=== PATIENT | female | born 1995 | race Two or more races ===

== ENCOUNTER 2023-02-26 21:10 | Emergency (ER) | payer OTHER ==
[~2023-02-26] VITALS: Ht 149.9 cm; Wt 61.2 kg
[2023-02-27 01:45] LABS: HEMOGLOBIN 14.3 g/dL (12.0-15.00); MEAN CELL VOLUME 86.3 fL (80.00-100.00); MEAN CORPUSCULAR HEMOGLOBIN 30.1 pg (27.00-32.0); MEAN CORPUSCULAR HGB CONC 34.9 g/dl (32.0-36.0); PLATELET COUNT 137 K/uL (150-450); RED BLOOD COUNT 4.76 M/uL (4.00-6.00); RED CELL DISTRIBUTION WIDTH 14.1 % (11.5-14.5)
[2023-02-27] MEDS ORDERED: PEPCID40 MG PO (03:47)
[2023-02-27] MEDS ORDERED: ONDANSETRON ODT4 MG PO (03:47)
== END 2023-02-27 03:53 ==
LOC: ER 21:10
PROVIDERS: General Practice
DX: R53.81 Other malaise (principal); B34.9 Viral infection, unspecified; Z20.822 Contact with and (suspected) exposure to COVID-19

== ENCOUNTER 2023-03-03 14:29 | Emergency (ER) | payer OTHER ==
[~2023-03-03] VITALS: Ht 149.9 cm; Wt 61.2 kg
[~2023-03-03 14:29] MED LIST: ONDANSETRON ODT4 MG PO; PEPCID40 MG PO
== END 2023-03-03 17:29 | disposition home or self-care (01) ==
LOC: ER 14:29
DX: K59.01 Slow transit constipation (principal)

== ENCOUNTER 2024-01-01 20:02 | Emergency (ER) | payer OTHER ==
[~2024-01-01] VITALS: Ht 149.9 cm; Wt 61.2 kg
[2024-01-01 20:15] VITALS: BP 101/62; O2SAT 99
[2024-01-01] MEDS ORDERED: ABILIFY2 MG (20:15)
[2024-01-01] MEDS ORDERED: [UNRECOGNIZED DRUG - OTHER] (20:15)
[2024-01-01] MEDS ORDERED: ZOLOFT20 MG/1 ML (20:15)
[2024-01-01] MEDS ORDERED: CLONAZEPAM0.125 MG (20:15)
[2024-01-01 21:19] LABS: HEMATOCRIT 38.9 % (36.0-45.00); HEMOGLOBIN 13.4 g/dL (12.0-15.00); MEAN CELL VOLUME 89.8 fL (80.00-100.00); MEAN CORPUSCULAR HEMOGLOBIN 30.9 pg (27.00-32.0); MEAN CORPUSCULAR HGB CONC 34.4 g/dl (32.0-36.0); PLATELET COUNT 299 K/uL (150-450); RED BLOOD COUNT 4.33 M/uL (4.00-6.00); RED CELL DISTRIBUTION WIDTH 14.2 % (11.5-14.5)
[2024-01-01 21:37] LABS: PH,URINE 6.5 (5.0-8.0); URINE APPEARANCE Clear; URINE BILIRRUBIN Negative (NEGATIVE); URINE BLOOD Small; URINE COLOR Yellow; URINE GLUCOSE Negative (NEGATIVE); URINE KETONE Negative (NEGATIVE); URINE LEUKOCYTE Negative; URINE NITRATE Negative; URINE PROTEIN Negative (NEGATIVE)
[2024-01-01 21:42] LABS: URINE BACTERIA 932.1 uL (0.0-1933); URINE EPITHELIAL CELLS 37.9 uL (0.0-38.8)
[2024-01-01 21:47] LABS: URINE CAST 0.15 uL (0.0-1.40)
[2024-01-01] MEDS ORDERED: CIPRO500 MG PO (22:03)
== END 2024-01-01 22:16 | disposition home or self-care (01) ==
LOC: ER 20:03
DX: N39.0 Urinary tract infection, site not specified (principal)

== ENCOUNTER 2024-09-04 17:56 | Emergency (ER) | payer OTHER ==
[~2024-09-04] VITALS: Ht 149.9 cm; Wt 61.2 kg
[~2024-09-04 17:56] MED LIST changes: +ABILIFY2 MG; +CIPRO500 MG PO; +CLONAZEPAM0.125 MG; +ZOLOFT20 MG/1 ML; +[UNRECOGNIZED DRUG - OTHER]
[2024-09-04 20:12] LABS: BASO % 0.4 % (0.1-1.2); EOS # 0.29 (0.04-0.54); EOS % 2.6 % (0.7-7.0); LYMPH # 3.97 (1.18-3.74); LYMPH % 35.5 % (19.3-53.1); MEAN PLATELET VOLUME 10.10 fl (9.4-12.4); MONO # 0.59 (0.24-0.82); MONO % 5.3 % (4.7-12.5); NEUT # 6.26 (1.56-6.13); NEUT % 55.9 % (34.0-71.1); RED CELL DISTRIBUTION WIDTH 13.6 % (11.6-14.4)
[2024-09-04 20:16] LABS: URINE APPEARANCE Clear; URINE BILIRRUBIN Negative (NEGATIVE); URINE BLOOD Small; URINE COLOR Yellow; URINE GLUCOSE Negative (NEGATIVE); URINE LEUKOCYTE Negative; URINE NITRATE Negative; URINE PROTEIN Negative (NEGATIVE); URINE UROBILINOGEN 1.0 E.U./dl
[2024-09-04 20:19] LABS: URINE BACTERIA 856.7 uL (0.0-1933); URINE EPITHELIAL CELLS 20.9 uL (0.0-38.8); URINE RBC 58.8 uL (0.0-20.8); URINE WBC 12.1 uL (0.0-23.2)
[2024-09-04 20:20] LABS: URINE CAST 0.14 uL (0.0-1.40); URINE KETONE 40 (NEGATIVE)
[2024-09-04 20:40] LABS: ALT/SGPT 17.0 U/L (12-78); AST/SGOT 5.0 U/L (15-37); BILIRUBIN TOTAL 0.31 mg/dL (0.3-1.2); BUN CREA RATIO 23.0 (7.0-25.0); CREATININE SERUM 0.44 mg/dL (0.55-1.02); GFR 167.9; GLOBULINA 3.2 G/DL (2.4-3.5); GLUCOSE FASTING 88.0 mg/dL (65-100); OSMOLALITY SERUM 280.0 MOSM/KG (275-295)
[2024-09-04] MEDS ORDERED: KETOROLAC TROMETHAMINE 30 MG VIAL IM STA (22:59)
== END 2024-09-04 23:14 | disposition home or self-care (01) ==
LOC: ER 17:56
PROVIDERS: General Practice
DX: R10.2 Pelvic and perineal pain (principal); R10.9 Unspecified abdominal pain; Z91.011 Allergy to milk products